=== PATIENT | female | born 1950 | race Caucasian/White ===

== ENCOUNTER 2018-02-14 09:04 | Emergency (ER) | payer OTHER ==
[~2018-02-14] VITALS: Ht 157.5 cm; Wt 49.9 kg
[~2018-02-14 09:04] MED LIST: CALCIUM OYSTER500 MG PO; CLOTRIM ANTIFUN15 GM TP; COMBIVENT INH; FLAGYL500 MG PO; FOSAMAX 70 MG T70 M1 PO; NORCO 5-325 TA1 EACH PO; PREDNISONE 20 M20 M1 PO; PREMARIN VAG CREAM VAG; PROAIR HFA8.5 GM IH; SPIRIVA INH; XANAX 0.5 MG0.5 M1 PO; ZPAK PO
[2018-02-14] MEDS ORDERED: PROAIR HFA8.5 GM INH (09:27)
[2018-02-14 10:25] VITALS: BP 142/86
== END 2018-02-14 10:32 | disposition home or self-care (01) ==
LOC: ER 09:04
DX: S10.96XA Insect bite of unspecified part of neck, initial encounter (principal); S80.862A Insect bite (nonvenomous), left lower leg, initial encounter; M19.90 Unspecified osteoarthritis, unspecified site; J44.9 Chronic obstructive pulmonary disease, unspecified; Z87.891 Personal history of nicotine dependence; Z88.5 Allergy status to narcotic agent; W57.XXXA Bitten or stung by nonvenomous insect and other nonvenomous arthropods, initial encounter; Y92.89 Other specified places as the place of occurrence of the external cause; Y93.89 Activity, other specified; Y99.8 Other external cause status